=== PATIENT | female | born 1990 | race Caucasian/White ===

== ENCOUNTER 2021-10-28 09:41 | Emergency (ER) | payer OTHER ==
[~2021-10-28] VITALS: Ht 170.2 cm; Wt 102.1 kg
[2021-10-28 12:20] LABS: APPEARANCE, URINE MANUAL CLEAR (CLEAR); BASO % 0.3 % (0.0-1.0); COLOR, URINE MANUAL YELLOW (YELLOW); EOS % 0.6 % (0.0-3.0); HEMATOCRIT 39.7 % (36.0-47.0); HEMOGLOBIN 13.6 g/dl (12.0-15.5); LYMPH # 2.1 10^3/uL (1.5-5.0); LYMPH % 31.4 % (24.0-44.0); MEAN CORPUSCULAR HEMOGLOBIN 29.9 pg (27.0-33.0); MEAN CORPUSCULAR HGB CONC 34.3 g/dl (32.0-36.5); MEAN CORPUSCULAR VOLUME 87.3 fl (80.0-96.0); MONO # 0.4 10^3/uL (0.0-0.8); MONO % 6.1 % (2.0-8.0); NEUTROPHILS # 4.1 10^3/uL (1.5-8.5); NEUTROPHILS % 61.5 % (36.0-66.0); PLATELET COUNT, AUTOMATED 234 10^3/uL (150-450); RED BLOOD COUNT 4.55 10^6/uL (4.00-5.40); WHITE BLOOD COUNT 6.7 10^3/uL (4.0-10.0)
[2021-10-28 12:21] LABS: BILIRUBIN, URINE MANUAL NEGATIVE (NEGATIVE); BLOOD URINE MANUAL NEGATIVE (NEGATIVE); GLUCOSE, URINE (UA) MANUAL NEGATIVE (NEGATIVE); KETONE, URINE MANUAL NEGATIVE (NEGATIVE); LEUKOCYTE ESTERASE, URINE MAN NEGATIVE (NEGATIVE); NITRITE, URINE MANUAL NEGATIVE (NEGATIVE); PROTEIN, URINE MANUAL NEGATIVE (NEGATIVE); UROBILINOGEN, URINE MANUAL NORMAL (NORMAL)
[2021-10-28 14:14] VITALS: BP 129/59
== END 2021-10-28 14:19 | disposition home or self-care (01) ==
LOC: M ED 09:41
DX: O26.891 Other specified pregnancy related conditions, first trimester (principal); R10.2 Pelvic and perineal pain; Z3A.01 Less than 8 weeks gestation of pregnancy

== ENCOUNTER → 2021-12-02 | Outpatient (CLI) | payer OTHER ==
[2021-12-02 18:20] LABS: HEMATOCRIT 36.3 % (36.0-47.0); HEMOGLOBIN 12.3 g/dl (12.0-15.5); MEAN CORPUSCULAR HEMOGLOBIN 29.8 pg (27.0-33.0); MEAN CORPUSCULAR HGB CONC 33.9 g/dl (32.0-36.5); MEAN CORPUSCULAR VOLUME 87.9 fl (80.0-96.0); PLATELET COUNT, AUTOMATED 222 10^3/uL (150-450); RED BLOOD COUNT 4.13 10^6/uL (4.00-5.40); WHITE BLOOD COUNT 7.8 10^3/uL (4.0-10.0)
[2021-12-02 19:45] LABS: HEPATITIS C VIRUS ABY INDEX < 0.0 INDEX (<0.8); HIV 1&2 SCREEN CENTAUR NEGATIVE (NEGATIVE)
[2021-12-02 20:20] LABS: GC DNA AMPLIFICATION NEGATIVE (NEGATIVE)
== END ==
LOC: M PLALAB 15:52
PROVIDERS: ATTEND Specialist
DX: Z34.81 Encounter for supervision of other normal pregnancy, first trimester (principal)

== ENCOUNTER → 2022-02-07 | Outpatient (CLI) | payer OTHER | LOC: M WHC 09:10 | PROVIDERS: ATTEND Advanced Practice Midwife | DX: Z34.92 Encounter for supervision of normal pregnancy, unspecified, second trimester (principal); Z3A.20 20 weeks gestation of pregnancy ==

== ENCOUNTER → 2022-03-04 | Outpatient (CLI) | payer OTHER | LOC: M WHC 10:26 | PROVIDERS: ATTEND Advanced Practice Midwife | DX: Z34.82 Encounter for supervision of other normal pregnancy, second trimester (principal) ==

== ENCOUNTER → 2022-03-23 | Outpatient (CLI) | payer OTHER ==
[2022-03-23 15:43] LABS: HEMATOCRIT 35.9 % (36.0-47.0); HEMOGLOBIN 11.8 g/dl (12.0-15.5); MEAN CORPUSCULAR HEMOGLOBIN 29.6 pg (27.0-33.0); MEAN CORPUSCULAR HGB CONC 32.9 g/dl (32.0-36.5); PLATELET COUNT, AUTOMATED 217 10^3/uL (150-450); RED BLOOD COUNT 3.99 10^6/uL (4.00-5.40); WHITE BLOOD COUNT 6.9 10^3/uL (4.0-10.0)
== END ==
LOC: M PLALAB 10:37
PROVIDERS: ATTEND Advanced Practice Midwife
DX: Z34.82 Encounter for supervision of other normal pregnancy, second trimester (principal)

== ENCOUNTER → 2022-06-01 | Outpatient (REF) | payer OTHER | LOC: M SFHCWAGY 12:53 | PROVIDERS: ATTEND Obstetrics & Gynecology | DX: Z34.93 Encounter for supervision of normal pregnancy, unspecified, third trimester (principal) ==

== ENCOUNTER → 2022-10-27 | Outpatient (REF) | payer OTHER ==
[~2022-10-27] MED LIST: ACET-683 PO; COLA100C5 PO; IBUP-1022 PO
== END ==
LOC: M PLALAB 15:31
PROVIDERS: ATTEND Advanced Practice Midwife
DX: Z12.4 Encounter for screening for malignant neoplasm of cervix (principal)

== ENCOUNTER 2022-11-06 11:37 | Emergency (ER) | payer OTHER ==
[~2022-11-06] VITALS: Ht 170.2 cm; Wt 100.3 kg
[2022-11-06] MEDS ORDERED: ALBU0.63 NEB (11:42)
[2022-11-06] MEDS ORDERED: BIRTH CONTROL PILL PO (11:42)
[2022-11-06] MEDS ORDERED: ALBUTEROL 90 MCG/ACT 8GM HFA INHALER INH ONE (12:15)
[2022-11-06] MEDS ORDERED: dexAMETHasone 20MG/5ML VIAL IV ONE (12:15)
[2022-11-06 12:17] LABS: BASO % 0.3 % (0.0-1.0); EOS # 0.1 10^3/uL (0.0-0.5); EOS % 1.5 % (0.0-3.0); HEMATOCRIT 39.5 % (36.0-47.0); HEMOGLOBIN 13.7 g/dl (12.0-15.5); MEAN CORPUSCULAR HEMOGLOBIN 29.3 pg (27.0-33.0); MEAN CORPUSCULAR HGB CONC 34.7 g/dl (32.0-36.5); MEAN CORPUSCULAR VOLUME 84.4 fl (80.0-96.0); MONO # 0.4 10^3/uL (0.0-0.8); MONO % 5.3 % (2.0-8.0); NEUTROPHILS # 4.2 10^3/uL (1.5-8.5); NEUTROPHILS % 62.6 % (36.0-66.0); PLATELET COUNT, AUTOMATED 254 10^3/uL (150-450); RED BLOOD COUNT 4.68 10^6/uL (4.00-5.40); WHITE BLOOD COUNT 6.8 10^3/uL (4.0-10.0)
[2022-11-06 12:33] LABS: ALBUMIN 3.2 G/DL (3.2-5.2); ALKALINE PHOSPHATASE 63 U/L (46-116); ALT/SGPT 24 U/L (7.0-40); AST/SGOT < 8 U/L (<34); BILIRUBIN,DIRECT 0.1 MG/DL (<0.4); BILIRUBIN,TOTAL 0.3 MG/DL (0.3-1.2); BLOOD UREA NITROGEN 11 MG/DL (9-23); CALCIUM LEVEL 8.3 MG/DL (8.5-10.1); CARBON DIOXIDE LEVEL 23 MMOL/L (20-31); CHLORIDE LEVEL 108 MMOL/L (98-107); CREATININE FOR GFR 0.98 MG/DL (0.55-1.30); GLOMERULAR FILTRATION RATE > 60.0 (>60); GLUCOSE, FASTING 129 MG/DL (60-100); POTASSIUM SERUM 3.6 MMOL/L (3.5-5.1); SODIUM LEVEL 141 MMOL/L (136-145); TOTAL PROTEIN 6.4 G/DL (5.7-8.2)
[2022-11-06 12:36] LABS: THYROID STIMULATING HORMONE 1.385 uIU/ML (0.55-4.78)
[2022-11-06 12:45] LABS: PROCALCITONIN <0.04 ng/ml
[2022-11-06] MEDS ORDERED: MEDR4PAK PO (13:22)
[2022-11-06] MEDS ORDERED: VENTAER INH (13:22)
[2022-11-06 13:34] VITALS: BP 109/64; TEMP 97.8; O2SAT 95
== END 2022-11-06 13:35 | disposition home or self-care (01) ==
LOC: M ED 11:37
DX: J35.1 Hypertrophy of tonsils (principal); J06.9 Acute upper respiratory infection, unspecified; Z79.52 Long term (current) use of systemic steroids; Z79.899 Other long term (current) drug therapy
CPT/HCPCS: 71045; 80048; 80076; 83605; 83880; 84145; 84443; 84702; 85025; 87486; 87581; 87633; 87798; 93041; 94640; 94664; 94760; 96374; 99284; J1100

== ENCOUNTER 2022-11-29 18:16 | Emergency (ER) | payer OTHER ==
[~2022-11-29] VITALS: Ht 170.2 cm; Wt 94.9 kg
[~2022-11-29 18:16] MED LIST changes: +ALBU0.63 NEB; +BIRTH CONTROL PILL PO; +MEDR4PAK PO; +VENTAER INH
[2022-11-29] MEDS ORDERED: ONDANSETRON 4MG 2ML VIAL IV ONE (23:40)
[2022-11-29] MEDS ORDERED: KETOROLAC 30 MG/ML 1ML VIAL IV ONE (23:40)
[2022-11-29] MEDS ORDERED: NS 1,000 ML IV ONE (23:40)
[2022-11-30] MEDS ORDERED: ISOVUE-370 76% 100ML VIAL As Ordered ONE (00:09)
[2022-11-30 00:17] LABS: BASO % 0.3 % (0.0-1.0); EOS % 0.5 % (0.0-3.0); HEMATOCRIT 39.7 % (36.0-47.0); HEMOGLOBIN 13.8 g/dl (12.0-15.5); LYMPH # 2.1 10^3/uL (1.5-5.0); LYMPH % 31.9 % (24.0-44.0); MEAN CORPUSCULAR HEMOGLOBIN 29.8 pg (27.0-33.0); MEAN CORPUSCULAR HGB CONC 34.8 g/dl (32.0-36.5); MEAN CORPUSCULAR VOLUME 85.7 fl (80.0-96.0); MONO # 0.4 10^3/uL (0.0-0.8); MONO % 5.4 % (2.0-8.0); NEUTROPHILS % 61.7 % (36.0-66.0); PLATELET COUNT, AUTOMATED 244 10^3/uL (150-450); RED BLOOD COUNT 4.63 10^6/uL (4.00-5.40); WHITE BLOOD COUNT 6.5 10^3/uL (4.0-10.0)
[2022-11-30 00:47] LABS: ALBUMIN 3.5 G/DL (3.2-5.2); BILIRUBIN,DIRECT 0.2 MG/DL (<0.4); BILIRUBIN,TOTAL 0.4 MG/DL (0.3-1.2); TOTAL PROTEIN 6.6 G/DL (5.7-8.2)
[2022-11-30] MEDS ORDERED: CIPROFLOXACIN 500MG TABLET PO ONE (02:05)
[2022-11-30 02:20] VITALS: BP 117/71; TEMP 97.8; O2SAT 99
[2022-11-30] MEDS ORDERED: PANT40TA29 PO (02:22)
[2022-11-30] MEDS ORDERED: CIPR-249 PO (02:22)
== END 2022-11-30 02:43 | disposition home or self-care (01) ==
LOC: M ED 18:16
DX: K29.80 Duodenitis without bleeding (principal); N39.0 Urinary tract infection, site not specified; K76.9 Liver disease, unspecified; Z79.52 Long term (current) use of systemic steroids; Z79.2 Long term (current) use of antibiotics; Z79.899 Other long term (current) drug therapy
CPT/HCPCS: 74177; 80047; 80076; 81001; 83690; 84702; 85025; 87088; 87186; 96374; 96375; 99283; J1885; J2405; Q9967

== ENCOUNTER 2022-12-02 09:24 | Emergency (ER) | payer OTHER ==
[~2022-12-02] VITALS: Ht 170.2 cm; Wt 95.0 kg
[~2022-12-02 09:24] MED LIST changes: +CIPR-249 PO; +PANT40TA29 PO
[2022-12-02 09:25] VITALS: BP 128/74; TEMP 97.9; O2SAT 97
[2022-12-02] MEDS ORDERED: LORY1TAB2 (10:09)
== END 2022-12-02 14:00 | disposition left against medical advice (07) ==
LOC: M ED 09:24
DX: Z53.21 Procedure and treatment not carried out due to patient leaving prior to being seen by health care provider (principal)

== ENCOUNTER 2022-12-26 22:52 | Emergency (ER) | payer OTHER ==
[~2022-12-26] VITALS: Ht 170.2 cm; Wt 91.3 kg
[~2022-12-26 22:52] MED LIST changes: +LORY1TAB2
[2022-12-26 22:53] VITALS: BP 115/70; TEMP 96.9; O2SAT 97
[2022-12-26] MEDS ORDERED: SUCR1SS PO (23:03)
== END 2022-12-27 00:55 | disposition left against medical advice (07) ==
LOC: M ED 22:52
DX: Z53.21 Procedure and treatment not carried out due to patient leaving prior to being seen by health care provider (principal)

== ENCOUNTER 2023-01-03 18:04 | Emergency (ER) | payer OTHER ==
[~2023-01-03] VITALS: Ht 170.2 cm; Wt 85.5 kg
[~2023-01-03 18:04] MED LIST changes: +SUCR1SS PO
[2023-01-03] MEDS ORDERED: ACET120S36 (18:14)
[2023-01-03] MEDS ORDERED: CHIL100S10 PO (18:14)
[2023-01-03 18:40] LABS: BASO % 0.2 % (0.0-1.0); EOS # 0.1 10^3/uL (0.0-0.5); EOS % 1.2 % (0.0-3.0); HEMATOCRIT 39.3 % (36.0-47.0); HEMOGLOBIN 13.5 g/dl (12.0-15.5); LYMPH # 1.4 10^3/uL (1.5-5.0); LYMPH % 29.1 % (24.0-44.0); MEAN CORPUSCULAR HEMOGLOBIN 29.5 pg (27.0-33.0); MEAN CORPUSCULAR HGB CONC 34.4 g/dl (32.0-36.5); MONO # 0.3 10^3/uL (0.0-0.8); MONO % 5.1 % (2.0-8.0); NEUTROPHILS # 3.1 10^3/uL (1.5-8.5); NEUTROPHILS % 64.2 % (36.0-66.0); PLATELET COUNT, AUTOMATED 224 10^3/uL (150-450); RED BLOOD COUNT 4.57 10^6/uL (4.00-5.40); WHITE BLOOD COUNT 4.9 10^3/uL (4.0-10.0)
[2023-01-03 18:55] LABS: INR 1.24; PARTIAL THROMBOPLASTIN TIME 27.1 SECONDS (24.8-34.2); PROTHROMBIN TIME 15.2 SECONDS (12.5-14.5)
[2023-01-03] MEDS ORDERED: PANTOPRAZOLE 40MG VIAL IV ONE (19:40)
[2023-01-03] MEDS ORDERED: FAMOTIDINE 20MG/2ML VIAL IVP ONE (19:40)
[2023-01-03 22:15] VITALS: BP 132/77; TEMP 98.1; O2SAT 99
== END 2023-01-03 22:37 | disposition home or self-care (01) ==
LOC: M ED 18:04 → EDBD 18:04 → M ED 22:37
DX: J95.830 Postprocedural hemorrhage of a respiratory system organ or structure following a respiratory system procedure (principal); K21.9 Gastro-esophageal reflux disease without esophagitis; Z79.1 Long term (current) use of non-steroidal anti-inflammatories (NSAID); Z79.810 Long term (current) use of selective estrogen receptor modulators (SERMs); Z79.899 Other long term (current) drug therapy
CPT/HCPCS: 80047; 85025; 85610; 85730; 86850; 86900; 86901; 94760; 96374; 99284; C9113; S0028

== ENCOUNTER → 2023-01-25 | Outpatient (CLI) | payer OTHER ==
[~2023-01-25] MED LIST changes: +ACET473S; +CHIL100S10 PO
[2023-01-25 10:53] LABS: HEMATOCRIT 38.6 % (36.0-47.0); MEAN CORPUSCULAR HEMOGLOBIN 29.2 pg (27.0-33.0); MEAN CORPUSCULAR HGB CONC 33.7 g/dl (32.0-36.5); MEAN CORPUSCULAR VOLUME 86.7 fl (80.0-96.0); PLATELET COUNT, AUTOMATED 207 10^3/uL (150-450); RED BLOOD COUNT 4.45 10^6/uL (4.00-5.40); WHITE BLOOD COUNT 5.5 10^3/uL (4.0-10.0)
[2023-01-25 11:02] LABS: ERYTHROCYTE SEDIMENTATION RATE 9 mm/hr (0-20)
[2023-01-25 12:09] LABS: LIPASE 31 U/L (12-53)
[2023-01-25 12:11] LABS: ALBUMIN 3.2 G/DL (3.2-5.2); ALKALINE PHOSPHATASE 62 U/L (46-116); ALT/SGPT 24 U/L (7.0-40); AST/SGOT 11 U/L (<34); BILIRUBIN,DIRECT 0.2 MG/DL (<0.4); BILIRUBIN,TOTAL 0.5 MG/DL (0.3-1.2); BLOOD UREA NITROGEN 8 MG/DL (9-23); CALCIUM LEVEL 8.6 MG/DL (8.5-10.1); CARBON DIOXIDE LEVEL 26 MMOL/L (20-31); CHLORIDE LEVEL 109 MMOL/L (98-107); CREATININE FOR GFR 0.63 MG/DL (0.55-1.30); GLOMERULAR FILTRATION RATE > 60.0 (>60); GLUCOSE, FASTING 98 MG/DL (60-100); POTASSIUM SERUM 4.2 MMOL/L (3.5-5.1); SODIUM LEVEL 143 MMOL/L (136-145); TOTAL PROTEIN 6.1 G/DL (5.7-8.2)
== END ==
LOC: M LAB 09:57
PROVIDERS: ATTEND Registered Nurse
DX: R10.13 Epigastric pain (principal); K21.9 Gastro-esophageal reflux disease without esophagitis

== ENCOUNTER 2023-02-09 00:15 | Emergency (ER) | payer OTHER ==
[~2023-02-09] VITALS: Ht 170.2 cm; Wt 87.5 kg
[2023-02-09] MEDS ORDERED: PANT40TA29 PO (00:51)
[2023-02-09] MEDS ORDERED: FAMO40TA3 PO (00:51)
[2023-02-09] MEDS ORDERED: PEPT262C2 PO (00:51)
[2023-02-09 01:45] LABS: BASO % 0.1 % (0.0-1.0); EOS % 0.3 % (0.0-3.0); HEMATOCRIT 43.5 % (36.0-47.0); HEMOGLOBIN 14.6 g/dl (12.0-15.5); LYMPH # 1.3 10^3/uL (1.5-5.0); LYMPH % 9.1 % (24.0-44.0); MEAN CORPUSCULAR HEMOGLOBIN 29.1 pg (27.0-33.0); MEAN CORPUSCULAR HGB CONC 33.6 g/dl (32.0-36.5); MEAN CORPUSCULAR VOLUME 86.7 fl (80.0-96.0); MONO # 0.6 10^3/uL (0.0-0.8); MONO % 3.9 % (2.0-8.0); NEUTROPHILS # 12.4 10^3/uL (1.5-8.5); NEUTROPHILS % 86.3 % (36.0-66.0); PLATELET COUNT, AUTOMATED 263 10^3/uL (150-450); RED BLOOD COUNT 5.02 10^6/uL (4.00-5.40); WHITE BLOOD COUNT 14.4 10^3/uL (4.0-10.0)
[2023-02-09 01:59] LABS: LIPASE 28 U/L (12-53)
[2023-02-09 02:01] LABS: ALBUMIN 3.5 G/DL (3.2-5.2); ALKALINE PHOSPHATASE 69 U/L (46-116); ALT/SGPT 16 U/L (7.0-40); AST/SGOT 8 U/L (<34); BILIRUBIN,DIRECT 0.2 MG/DL (<0.4); BILIRUBIN,TOTAL 0.6 MG/DL (0.3-1.2); BLOOD UREA NITROGEN 13 MG/DL (9-23); CALCIUM LEVEL 8.9 MG/DL (8.5-10.1); CARBON DIOXIDE LEVEL 25 MMOL/L (20-31); CHLORIDE LEVEL 107 MMOL/L (98-107); CREATININE FOR GFR 0.67 MG/DL (0.55-1.30); GLOMERULAR FILTRATION RATE > 60.0 (>60); GLUCOSE, FASTING 107 MG/DL (60-100); SODIUM LEVEL 141 MMOL/L (136-145); TOTAL PROTEIN 6.6 G/DL (5.7-8.2)
[2023-02-09] MEDS ORDERED: NS 1,000 ML IV ONE (02:05)
[2023-02-09] MEDS ORDERED: ONDANSETRON 4MG 2ML VIAL IV ONE (02:05)
[2023-02-09] MEDS ORDERED: KETOROLAC 30 MG/ML 1ML VIAL IV ONE (02:05)
[2023-02-09 02:08] LABS: HCG, SERUM QUALITATIVE NEGATIVE (NEGATIVE)
[2023-02-09] MEDS ORDERED: ISOVUE-370 76% 100ML VIAL As Ordered ONE (02:11)
[2023-02-09 02:21] LABS: RSV AMPLIFICATION NEGATIVE (NEGATIVE)
[2023-02-09] MEDS ORDERED: ONDA4TAB6 PO (03:41)
[2023-02-09 03:52] VITALS: BP 130/78; TEMP 98.6; O2SAT 98
== END 2023-02-09 04:08 | disposition home or self-care (01) ==
LOC: M ED 00:15
DX: K52.9 Noninfective gastroenteritis and colitis, unspecified (principal); Z79.899 Other long term (current) drug therapy
CPT/HCPCS: 74177; 80048; 80076; 81001; 83690; 84703; 85025; 87086; 87631; 96361; 96374; 96375; 99284; J1885; J2405; Q9967

== ENCOUNTER → 2023-03-08 | Outpatient (REF) | payer OTHER ==
[~2023-03-08] MED LIST changes: +FAMO40TA3 PO; +ONDA4TAB6 PO; +PEPT262C2 PO
[2023-03-08 14:41] LABS: HEMATOCRIT 45.2 % (36.0-47.0); HEMOGLOBIN 14.9 g/dl (12.0-15.5); MEAN CORPUSCULAR HEMOGLOBIN 28.2 pg (27.0-33.0); MEAN CORPUSCULAR VOLUME 85.4 fl (80.0-96.0); PLATELET COUNT, AUTOMATED 244 10^3/uL (150-450); RED BLOOD COUNT 5.29 10^6/uL (4.00-5.40); WHITE BLOOD COUNT 7.3 10^3/uL (4.0-10.0)
[2023-03-08 15:00] LABS: HEMOGLOBIN A1c 4.8 % (4.0-6.0)
[2023-03-08 15:09] LABS: ALBUMIN 3.6 G/DL (3.2-5.2); ALKALINE PHOSPHATASE 79 U/L (46-116); ALT/SGPT 18 U/L (7.0-40); AST/SGOT 9 U/L (<34); BILIRUBIN,TOTAL 0.5 MG/DL (0.3-1.2); BLOOD UREA NITROGEN 12 MG/DL (9-23); CARBON DIOXIDE LEVEL 28 MMOL/L (20-31); CHLORIDE LEVEL 108 MMOL/L (98-107); CHOLESTEROL LEVEL 127 MG/DL (<200); CHOLESTEROL RISK RATIO 2.54 (<5); GLOMERULAR FILTRATION RATE > 60.0 (>60); GLUCOSE, FASTING 91 MG/DL (60-100); HDL CHOLESTEROL 49.9 MG/DL (>40); LDL CHOLESTEROL 46.9 MG/DL (<100); MAGNESIUM LEVEL 1.9 MG/DL (1.8-2.4); NON-HDL-C 77.1 MG/DL; POTASSIUM SERUM 4.1 MMOL/L (3.5-5.1); SODIUM LEVEL 140 MMOL/L (136-145); TOTAL PROTEIN 6.9 G/DL (5.7-8.2); TRIGLYCERIDES LEVEL 151 MG/DL (<150)
[2023-03-08 15:11] LABS: TOTAL 25(OH) VITAMIN D 36.7 NG/ML (20.0-100.0)
[2023-03-08 15:12] LABS: THYROID STIMULATING HORMONE 1.315 uIU/ML (0.55-4.78)
[2023-03-08 15:36] LABS: HIV 1&2 SCREEN NEGATIVE (NEGATIVE)
[2023-03-08 15:44] LABS: HEPATITIS C VIRUS ABY INDEX 0.02 INDEX (<0.8)
== END ==
LOC: M LAB REF 14:00
PROVIDERS: ATTEND Physician Assistant
DX: Z00.00 Encounter for general adult medical examination without abnormal findings (principal); K21.00 Gastro-esophageal reflux disease with esophagitis, without bleeding; Z11.59 Encounter for screening for other viral diseases; Z11.4 Encounter for screening for human immunodeficiency virus [HIV]